=== PATIENT | male | born 1955 | race Caucasian/White ===

== ENCOUNTER 2019-06-19 08:50 | Outpatient (CLI) | payer BC, SELFPAY ==
[2019-06-19 09:54] VITALS: BP 164/79; PULSE 90; RESP 17; TEMP 36.4; O2SAT 98
--- NOTE | 2019-06-19 11:17 | DI.RAD_ITS ---
EXAM: XR PAIN CLINIC FLUORO JOINT CLINICAL HISTORY: Dx: B/L osteoarthritis TECHNIQUE: Realtime digital imaging was performed. CONTRAST MATERIAL: Water soluble contrast was administered. COMPARISON: None. FINDINGS: C-ARM FLUOROSCOPY WAS UTILIZED BY DR. SMITH DURING REPORTED GENICULAR RADIOFREQUENCY ABLATION. PLEASE SEE DR. SMITH'S PROCEDURE NOTE. IMPRESSION:
[2019-06-19 11:19] VITALS: BP 148/93; PULSE 84; RESP 11; O2SAT 96
--- NOTE | 2019-06-19 11:19 | PDOC.PAIN_ITS ---
Pain Clinic Procedure Note Procedure Note Procedure Note: BILATERAL GENICULAR NERVE RADIOFREQUENCY ABLATION Date of Service: June 19, 2019 Patient: PATRICK SMITH Provider: Antonino Lopez DO, MPH COMMENTS: Previous Genicular nerve block to the bilateral knee. No IV medication per request. DX: Bilateral Knee Osteoarthritis PATRICK SMITH has been referred to the [facility] for bilateral genicular nerve radiofrequency ablation. PATRICK was interviewed and the medical record reviewed. There were no medical, pharmacologic, radiographic or other structural contraindications to attempting fluoroscopically guided bilateral genicular nerve radiofrequency ablation. Risks and potential side effects as well as potential benefit of the procedure were reviewed with PATRICK SMITH , and his voiced concerns were addressed. After I believed that the patient was completely informed, the printed consent form was signed. Standard time-out procedure was performed. PATRICK was placed in the supine position on the fluoroscopy table and automated blood pressure cuff and pulse oximeter applied. The skin entry points for approaching bilateral superolateral genicular nerve, the suprapatellar nerve, the superomedial genicular nerve and the inferomedial genicular was identified under the most advantageous fluoroscopic view and marked. Following thorough Chlorhexadine preparation of the skin and draping, 1% lidocaine infiltration of the skin entry point and subcutaneous tissues was accomplished using a 1.5 25G needle. Next, the 10 cm 18G RF Cannula with a 10 mm active tip was advanced to os at the location of the specific nerve roots (3) using fluoroscopic guidance. Next, sensory and motor testing was performed and no abnormal findings were found. Next, 1 cc of 2% Lidocaine was injected at each site. The lesion was then created with 80 degrees C for 90 seconds. Each needle was advance 1 cm and the lesion was completed again. Each cannula was advanced until the tip reached the posterior aspect of the bone shaft. 1/3 cc of Depomedrol (40 mg/cc) was then injected at each site followed by 2 cc of 0.5% Bupivacaine as the needle was withdrawn. The needles were removed without difficulty. BRAYANs vital signs were stable throughout the procedure and were as recorded in the docflowsheet by the nursing staff. If given, dosages of intravenous drugs for anxiolysis and analgesia were documented in MAR. Follow up plans and appointments were discussed with the PATRICK SMITH . Post procedure instruction was given as documented in nursing documentation and having met discharge criteria, PATRICK was discharged from the [facility]. COMMENTS: No complications. Johnson WJ1, Robbin SJ, Aureliano JG, Marybeth JG, Elena LUGO, Park PH, Trevino JW. Radiofrequency treatment relieves chronic knee osteoarthritis pain: a double-blind randomized controlled trial. Pain. 2010;152(3):481-7. doi: 10.1016/j.pain.2010.09.029. Hellen S1, Francis ON2, Fabiola Y3, ?zl?anastasiya P2, Andrea U1, Andrzej ?m?rl? I. Which one is more effective for the clinical treatment of chronic pain in knee osteoarthritis: radiofrequency neurotomy of the genicular nerves or intra- articular injection? Int J Rheum Dis. 2016 May 12. F/U with our office as needed I personally performed this entire procedure. Antonino Lopez DO, MPH Attending Physician
[2019-06-19] MEDS: Bupivacaine 0.5% Pres-Free 10 ML VIAL IJ (11:21)
[2019-06-19] MEDS: methylPREDNISolone ACETATE 40 MG/ML VIAL IJ (11:34)
[2019-06-19] MEDS: Lidocaine 2% Pres-Free 5 ML VIAL IJ (11:35)
== END 2019-06-19 09:10 ==
PROVIDERS: Visit Provider Preventive Medicine Occupational Medicine
DX: M17.11 Unilateral primary osteoarthritis, right knee (principal); M17.12 Unilateral primary osteoarthritis, left knee
CPT/HCPCS: 64640 ×8; 77002; J1030

== ENCOUNTER 2022-06-22 10:11 | Outpatient (CLI) | payer MEDICARE, BC, SELFPAY ==
--- NOTE | 2022-06-22 06:00 | DI.RAD_ITS ---
Exam(s) XR PAIN CLINIC FLUORO JOINT IN EXAM: XR PAIN CLINIC FLUORO JOINT IN CLINICAL HISTORY: DX: bilateral knee osteoarthritis. TECHNIQUE: Fluoroscopy was provided for the referring physician for guidance with performing pain cl inic injection procedure. COMPARISON: No exams were available for comparison FINDINGS: Please see procedure note for details. Fluoro time: 52.2 seconds RADIATION DOSE DELIVERED: jong Carlisle=3.09 mGy
[2022-06-22 10:54] VITALS: BP 133/81; PULSE 84; RESP 20; TEMP 36.9; O2SAT 97
[2022-06-22] MEDS: Bupivacaine 0.5% Pres-Free 10 ML VIAL IJ (11:48)
[2022-06-22 11:49] VITALS: PULSE 80; O2SAT 98
--- NOTE | 2022-06-22 15:50 | PDOC.PAIN ---
Pain Clinic Procedure Note Procedure Note Procedure Note: Bilateral knee GENICULAR NERVE BLOCK Date of Service: June 22, 2022 Patient: PATRICK SMITH Provider: Antonino Loepz DO, MPH Pre-operative diagnosis: Bilateral knee pain Post-operative diagnosis: Same Pre-procedure pain: VAS= 10/10 COMMENTS: He had nearly 3 years of relief with this last bilateral Genicular nerve ablations. He pain recently returned. He is here for confirmatory blocks. PATRICK SMITH has been referred to the [facility] for bilateral genicular nerve block. PATRICK was interviewed and the medical record reviewed. There were no medical, pharmacologic, radiographic or other structural contraindications to attempting fluoroscopically guided bilateral genicular nerve block. Risks and potential side effects as well as potential benefit of the procedure were reviewed with PATRICK , and his voiced concerns were addressed. After I believed that the patient was completely informed, the printed consent form was signed. Standard time-out procedure was performed. PATRICK was placed in the supine position on the fluoroscopy table and automated blood pressure cuff and pulse oximeter applied. The skin entry points for approaching the right superolateral genicular nerve, the superomedial genicular nerve, the terminal branch of the nerve vastus intermedius and the inferomedial genicular was identified under the most advantageous fluoroscopic view and marked. Following thorough Chlorhexadine preparation of the skin and draping, 1% lidocaine infiltration of the skin entry point and subcutaneous tissues was accomplished using a 1.5 25G needle. Next, the 3.5 25G spinal needle was advanced to os at the location of the specific nerve root using fluoroscopic guidance. Next, 1 ml of 0.5% Bupivacaine was injected at each site. The needles were removed without difficulty. The exact procedure was completed to the left knee. PATRICK's vital signs were stable throughout the procedure and were as recorded in the docflowsheet by the nursing staff. If given, dosages of intravenous drugs for anxiolysis and analgesia were documented in MAR. Follow up plans and appointments were discussed with the PATRICK . Post procedure instruction was given as documented in nursing documentation and having met discharge criteria, PATRICK was discharged from the [facility]. COMMENTS: No apparent complications. Post-procedure pain: VAS = 0/10. The patient will keep track of her bilateral knee pain over the next four hours. If PATRIKC has sufficient pain relief, PATRICK will be a candidate for radiofrequency ablation at the same nerves. Alex WJ1, Robbin SJ, Aureliano JG, Marybeth JG, Elena LUGO, Park PH, Trevino JW. Radiofrequency treatment relieves chronic knee osteoarthritis pain: a double-blind randomized controlled trial. Pain. 2010;152(3):481-7. doi: 10.1016/j.pain.2010.09.029. Hellen S1, Francis ON2, Fabiola Y3, ?zl?anastasiya P2, Andrea U1, Andrzej ?m?rl? I. Which one is more effective for the clinical treatment of chronic pain in knee osteoarthritis: radiofrequency neurotomy of the genicular nerves or intra-articular injection? Int J Rheum Dis. 2016 May 12. F/U with our office by phone tomorrow to let us know his 1-4 hour post-procedure pain levels in the knees. Antonino Lopez DO, MPH [facility]
== END 2022-06-22 10:12 | disposition home or self-care (01) ==
LOC: PC 10:12
PROVIDERS: Visit Provider Preventive Medicine Occupational Medicine
DX: M25.561 Pain in right knee (principal); M25.562 Pain in left knee
CPT/HCPCS: 64454; 77002

== ENCOUNTER 2022-07-06 10:34 | Outpatient (CLI) | payer MEDICARE, BC, SELFPAY ==
[2022-07-06 11:15] VITALS: BP 131/70; PULSE 77; RESP 20; TEMP 36.8; O2SAT 98
[2022-07-06] MEDS: Midazolam 2 MG/2 ML VIAL IVP (11:50)
[2022-07-06] MEDS: fentaNYL 100 MCG/2 ML VIAL IVP (11:50)
[2022-07-06 12:17] VITALS: BP 143/81; PULSE 84; RESP 17; O2SAT 98
--- NOTE | 2022-07-06 12:18 | DI.RAD_ITS ---
Exam(s) XR PAIN CLINIC FLUORO JOINT IN EXAM: XR PAIN CLINIC FLUORO JOINT IN CLINICAL HISTORY: Dx: Osteoarthritis of the knee TECHNIQUE: 2D and realtime digital imaging was performed. COMPARISON: No exams were available for comparison FINDINGS: C-arm fluoroscopy was utilized by Dr. Lopez. Please see the procedure note. IMPRESSION: RADIATION DOSE DELIVERED: jong Carlisle=4.33 mGy
--- NOTE | 2022-07-06 12:20 | PDOC.PAIN_ITS ---
Pain Clinic Procedure Note Procedure Note Procedure Note: Right Knee Radiofrequency with Coolief Machine PROCEDURE NOTE Date of Service: July 06, 2022 Patient: Benjamín Peralta Provider: Antonino Lopez DO, MPH Pre Operative Diagnosis: Right osteoarthritis status-post TKA Post Operative Diagnosis: Same PROCEDURE: 1. Superolateral genicular branch from the vastus lateralis 2. Superomedial genicular branch from the vastus medialis 3. Inferomedial genicular branch from the saphenous nerve 4. Terminal branch of the nerve vastus intermedius Benjamín Peralta was brought into brought to the procedure room and placed on the exam table in a comfortable supine position. The place for needle placement was obtained by manual palpation with radiographic confirmation. The sterile field was prepared by chloroprep and sterile drapes. Local anesthesia superficial and deep was provided by local infiltration of 2% Lidocaine. A 17g 50 mm radiofrequency introducer needle with a 4mm active tip was placed overlying the right knee joint and using fluoroscopic guidance the needle was advanced to a bony endpoint on the superiolateral portion of the femoral condyle of the right knee. A second needle was advanced to a bony endpoint on the superiomedial portion of the femoral condyle. A third needle was then placed over the inferiomedial portion of the tibial condyle until a bony endpoint was met. Attempted aspiration yielded no blood. Lateral x-ray views showed all the needles at 50% depth of the femur and tibia. Motor stimulation was tested ad 2.0 volts with no leg movement. Images were saved in AP and lateral. A mixture consisting of 2% Lidocaine was slowly injected. Then a radiofrequency ablation of each of the geniculate nerves were done at 80 degrees Celsius for 2 minutes and 30 seconds each. After each ablation, I injected 1/4 cc of Depomedrol (40/cc) followed by 1 cc of 0.5% Bupivacaine. The needles were withdrawn. POST PROCEDURE EVALUATION: IMPRESSION: Summary of procedure. 1. RTC PRN. 2. Estimated Blood Loss: <5cc Follow up plans and appointments were discussed with the Benjamín . Post procedure instruction was given as documented in nursing documentation and having met discharge criteria, Benjamín was discharged from the [facility]. COMMENTS: No complications. Post-procedure pain VAS was 0/10. F/U with our office as needed. Antonino Lopez DO, MPH [facility]-Pain Management [facility]-Center for Pain Management.
[2022-07-06] MEDS: Bupivacaine 0.5% Pres-Free 10 ML VIAL IJ (12:37)
[2022-07-06] MEDS: methylPREDNISolone ACETATE 40 MG/ML VIAL IJ (12:38)
[2022-07-06] MEDS: Lidocaine 2% Pres-Free 5 ML VIAL IJ (12:38)
== END 2022-07-06 10:35 | disposition home or self-care (01) ==
LOC: PC 10:34
PROVIDERS: Visit Provider Preventive Medicine Occupational Medicine
DX: M17.11 Unilateral primary osteoarthritis, right knee (principal); M25.561 Pain in right knee
CPT/HCPCS: 64624; 77002; J1030; J2250; J3010

== ENCOUNTER 2022-08-16 08:18 | Outpatient (CLI) | payer MEDICARE, BC, SELFPAY ==
--- NOTE | 2022-08-16 06:00 | DI.RAD_ITS ---
Exam(s) XR PAIN CLINIC FLUORO JOINT IN EXAM: XR PAIN CLINIC FLUORO JOINT IN CLINICAL HISTORY: Dx: Osteoarthritis of the knee. TECHNIQUE: Fluoroscopy was provided for the referring physician for guidance with performing pain cl inic injection procedure. COMPARISON: No exams were available for comparison FINDINGS: Please see procedure note for details. Fluoro time: 53.0 seconds RADIATION DOSE DELIVERED: jong Carlisle=3.57 mGy
[2022-08-16 08:36] VITALS: BP 126/82; PULSE 97; RESP 20; TEMP 36.5; O2SAT 98
[2022-08-16] MEDS: fentaNYL 100 MCG/2 ML VIAL IVP (09:02)
[2022-08-16] MEDS: Lactated Ringers 500 ML 80 ML IV (09:35)
--- NOTE | 2022-08-16 09:37 | PDOC.PAIN ---
Date of service: 08/16/22 Time of Service: 09:37 Pain Clinic Procedure Note Procedure Note Procedure Note: LEFT GENICULAR NERVE RADIOFREQUENCY ABLATION WITH THE AVENOS MACHINE Date of Service: August 16, 2022 Patient: Benjamín Peralta Provider: Antonino Lopez DO, MPH Pre-operative diagnosis: Left knee pain and osteoarthritis Post-operative diagnosis: Same Pre-operative pain VAS: 6/10 COMMENTS: Previous Genicular nerve block to the LEFT knee on 06/22/22. Benjamín Peralta has been referred to the [facility] for LEFT genicular nerve radiofrequency ablation. Benjamín was interviewed and the medical record reviewed. There were no medical, pharmacologic, radiographic or other structural contraindications to attempting fluoroscopically guided LEFT genicular nerve radiofrequency ablation. Risks and potential side effects as well as potential benefit of the procedure were reviewed with Benjamín Peralta , and HIS voiced concerns were addressed. After I believed that the patient was completely informed, the printed consent form was signed. Standard time-out procedure was performed. Benjamín was placed in the supine position on the fluoroscopy table and automated blood pressure cuff and pulse oximeter applied. The skin entry points for approaching LEFT superolateral genicular nerve, the superomedial genicular nerve and the inferomedial genicular was identified under the most advantageous fluoroscopic view and marked. Following thorough Chlorhexadine preparation of the skin and draping, 1% lidocaine infiltration of the skin entry point and subcutaneous tissues was accomplished using a 1.5 25G needle. Next, the 10 cm 18G RF Cannula with a 10 mm active tip was advanced to os at the location of the specific nerve roots (3) using fluoroscopic guidance. Next, sensory and motor testing was performed and no abnormal findings were found. Next, 1 cc of 2% Lidocaine was injected at each site. The lesion was then created with 80 degrees C for 90 seconds. Each needle was advance 1 cm and the lesion was completed again. Each cannula was advanced until the tip reached the posterior aspect of the bone shaft. 1/3 cc of Depomedrol (40 mg/cc) was then injected at each site followed by 2 cc of 0.5% Bupivacaine as the needle was withdrawn. The needles were removed without difficulty. Benjamín's vital signs were stable throughout the procedure and were as recorded in the docflowsheet by the nursing staff. If given, dosages of intravenous drugs for anxiolysis and analgesia were documented in MAR. Follow up plans and appointments were discussed with the Benjamín Peralta . Post procedure instruction was given as documented in nursing documentation and having met discharge criteria, Benjamín was discharged from the [facility]. COMMENTS: No complications. Alex WJ1, Robbin SJ, Aureliano JG, Marybeth JG, Ulices LUGO, Ruth PH, Uriel JW. Radiofrequency treatment relieves chronic knee osteoarthritis pain: a double-blind randomized controlled trial. Pain. 2010;152(3):481-7. doi: 10.1016/j.pain.2010.09.029. Hellen S1, Francis ON2, Fabiola Y3, ?zl?lerden P2, Andrea U1, Andrzej ?m?rl? I. Which one is more effective for the clinical treatment of chronic pain in knee osteoarthritis: radiofrequency neurotomy of the genicular nerves or intra-articular injection? Int J Rheum Dis. 2016 May 12. F/U with our office as needed. This procedure can be completed if it lasts at least 6 months. Post-procedure pain VAS = 0/10. Antonino Lopez DO, MPH [facility] for [facility]
[2022-08-16] MEDS: Bupivacaine 0.5% Pres-Free 10 ML VIAL IJ (09:44)
[2022-08-16] MEDS: Lidocaine 2% Pres-Free 5 ML VIAL IJ (09:44)
[2022-08-16] MEDS: methylPREDNISolone ACETATE 40 MG/ML VIAL IJ (09:44)
[2022-08-16 09:45] VITALS: BP 143/91; PULSE 97; RESP 18; O2SAT 96
== END 2022-08-16 08:19 | disposition home or self-care (01) ==
LOC: PC 08:19
PROVIDERS: Visit Provider Preventive Medicine Occupational Medicine
DX: M25.562 Pain in left knee (principal); M17.12 Unilateral primary osteoarthritis, left knee
CPT/HCPCS: 64624; 77002; J1030; J3010

== ENCOUNTER 2023-02-07 07:24 | Outpatient (CLI) | payer MEDICARE, BC, SELFPAY ==
[2023-02-07 07:35] VITALS: BP 112/71; PULSE 81; RESP 20; TEMP 36.5; O2SAT 98
[2023-02-07] MEDS: Midazolam 2 MG/2 ML VIAL IVP (08:21)
[2023-02-07] MEDS: fentaNYL 100 MCG/2 ML VIAL IVP (08:21)
[2023-02-07] MEDS: Lactated Ringers 500 ML 80 ML IV (08:21)
--- NOTE | 2023-02-07 08:50 | DI.RAD_ITS ---
Exam(s) XR PAIN CLINIC FLUORO JOINT IN EXAM: XR PAIN CLINIC FLUORO JOINT IN CLINICAL HISTORY: Dx: Osteoarthritis of the knee. TECHNIQUE: Fluoroscopy was provided for the referring physician for guidance with performing pain cl inic injection procedure. COMPARISON: No exams were available for comparison FINDINGS: Please see procedure note for details. Fluoro time: 60 seconds RADIATION DOSE DELIVERED: jong Carlisle=3.17 mGy
[2023-02-07 08:52] VITALS: BP 117/69; PULSE 66; RESP 16; O2SAT 98
--- NOTE | 2023-02-07 08:55 | PDOC.PAIN_ITS ---
Date of service: 02/07/23 Time of Service: 09:03 Pain Managment Procedure Note Procedure Note Procedure Note: RIGHT GENICULAR NERVE RADIOFREQUENCY ABLATION WITH THE COOLIEF MACHINE Date of Service: February 07, 2023 Patient: Benjamín Peralta Provider: Antonino Lopez DO, MPH Pre-operative diagnosis: Right knee pain Post-operative diagnosis: Same Pre-procedure pain VAS was 10/10. COMMENTS: Previous Genicular nerve ablation to the RIGHT knee on 07/06/2022 with >6 months of >50% pain relief. Benjamín Peralta has been referred to the [facility] for RIGHT genicular nerve radiofrequency ablation. Benjamín was interviewed and the medical record reviewed. There were no medical, pharmacologic, radiographic or other structural contraindications to attempting fluoroscopically guided RIGHT genicular nerve radiofrequency ablation. Risks and potential side effects as well as potential benefit of the procedure were reviewed with Benjamín Peralta , and HIS voiced concerns were addressed. After I believed that the patient was completely informed, the printed consent form was signed. Standard time-out procedure was performed. Benjamín was placed in the supine position on the fluoroscopy table and automated blood pressure cuff and pulse oximeter applied. The skin entry points for approaching RIGHT superolateral genicular nerve, the superomedial genicular nerve, suprapatellar, and the inferomedial genicular was identified under the most advantageous fluoroscopic view and marked. Following thorough Chlorhexadine preparation of the skin and draping, 1% lidocaine infiltration of the skin entry point and subcutaneous tissues was accomplished using a 1.5 25G needle. Next, the 10 cm 18G RF Cannula with a 10 mm active tip was advanced to os at the location of the specific nerve roots (4) using fluoroscopic guidance. Next, sensory and motor testing was performed and no abnormal findings were found. Next, 1 cc of 2% Lidocaine was injected at each site. The lesion was then created with 80 degrees C for 90 seconds. Each needle was advance 1 cm and the lesion was completed again. Each cannula was advanced until the tip reached the posterior aspect of the bone shaft. 1/4 cc of Depomedrol (40 mg/cc) was then injected at each site followed by 2 cc of 0.5% Bupivacaine as the needle was withdrawn. The needles were removed without difficulty. Benjamín's vital signs were stable throughout the procedure and were as recorded in the docflowsheet by the nursing staff. If given, dosages of intravenous drugs for anxiolysis and analgesia were documented in NOV. Follow up plans and appointments were discussed with the Benjamín Peralta . Post procedure instruction was given as documented in nursing documentation and having met discharge criteria, Benjamín was discharged from the [facility]. COMMENTS: No complications. Johnson WJ1, Robbin SJ, Aureliano JG, Marybeth JG, Ulices LUGO, Park PH, Uriel JW. Radiofrequency treatment relieves chronic knee osteoarthritis pain: a double-blind randomized controlled trial. Pain. 2010;152(3):481-7. doi: 10.1016/j.pain.2010.09.029. Hellen S1, Francis ON2, Fabiola Y3, ?zl?lerkeny P2, Andrea U1, Andrzej ?m?rl? I. Which one is more effective for the clinical treatment of chronic pain in knee osteoarthritis: radiofrequency neurotomy of the genicular nerves or intra- articular injection? Int J Rheum Dis. 2016 May 12. F/U with our office as needed. If this procedure gives him at least 6 months of at least 50% pain relief and/or functional improvement, it can be repeated. Post-procedure pain VAS was 0/10. Antonino Lopez DO, MPH [facility]
[2023-02-07] MEDS: Lidocaine 2% Pres-Free 5 ML VIAL IJ (09:12)
[2023-02-07] MEDS: Bupivacaine 0.5% Pres-Free 10 ML VIAL IJ (09:13)
[2023-02-07] MEDS: methylPREDNISolone ACETATE 40 MG/ML VIAL IJ (09:13)
== END 2023-02-07 07:25 | disposition home or self-care (01) ==
PROVIDERS: Visit Provider Preventive Medicine Occupational Medicine
DX: M25.561 Pain in right knee (principal)
CPT/HCPCS: 64624; 77002; J1030; J2250; J3010

== ENCOUNTER 2023-02-21 07:17 | Outpatient (CLI) | payer MEDICARE, BC, SELFPAY ==
--- NOTE | 2023-02-21 06:00 | DI.RAD_ITS ---
Exam(s) XR PAIN CLINIC FLUORO JOINT IN EXAM: XR PAIN CLINIC FLUORO JOINT IN CLINICAL HISTORY: Dx: Left knee pain TECHNIQUE: 2D and realtime digital imaging was performed. Radiologist not present. CONTRAST MATERIAL: None. COMPARISON: No exams were available for comparison FINDINGS: Fluoroscopy was provided for pain management therapy. Please refer to procedure report or details. Radiation Exposure Index: Kar=4.22 mGy IMPRESSION: As above. RADIATION DOSE DELIVERED:
[2023-02-21 07:32] VITALS: BP 125/82; PULSE 78; RESP 20; TEMP 36.5; O2SAT 98
[2023-02-21] MEDS: Midazolam 2 MG/2 ML VIAL IVP (08:25)
[2023-02-21] MEDS: fentaNYL 100 MCG/2 ML VIAL IVP (08:25)
[2023-02-21] MEDS: Lactated Ringers 500 ML 80 ML IV (08:28)
[2023-02-21 08:57] VITALS: BP 137/68; PULSE 81; RESP 14; O2SAT 98
[2023-02-21] MEDS: Bupivacaine 0.5% Pres-Free 10 ML VIAL IJ (09:20)
[2023-02-21] MEDS: methylPREDNISolone ACETATE 40 MG/ML VIAL IJ (09:21)
[2023-02-21] MEDS: Lidocaine 2% Pres-Free 5 ML VIAL IJ (09:21)
--- NOTE | 2023-02-21 14:00 | PDOC.PAIN ---
Date of service: 02/21/23 Time of Service: 09:00 Pain Managment Procedure Note Procedure Note Procedure Note: LEFT GENICULAR NERVE RADIOFREQUENCY ABLATION WITH THE AVENOS MACHINE Date of Service: February 21, 2023 Patient: Benjamín Peralta Provider: Antonino Lopez DO, MPH Pre-operative diagnosis: Left knee pain Post-operative diagnosis: Same Pre-procedure pain VAS was 6/10 COMMENTS: Previous Genicular nerve block to the LEFT knee. Benjamín Peralta has been referred to the [facility] for LEFT genicular nerve radiofrequency ablation. Benjamín was interviewed and the medical record reviewed. There were no medical, pharmacologic, radiographic or other structural contraindications to attempting fluoroscopically guided LEFT genicular nerve radiofrequency ablation. Risks and potential side effects as well as potential benefit of the procedure were reviewed with Benjamín Peralta , and HIS voiced concerns were addressed. After I believed that the patient was completely informed, the printed consent form was signed. Standard time-out procedure was performed. Benjamín was placed in the supine position on the fluoroscopy table and automated blood pressure cuff and pulse oximeter applied. The skin entry points for approaching LEFT superolateral genicular nerve, the superomedial genicular nerve, suprapatellar, and the inferomedial genicular was identified under the most advantageous fluoroscopic view and marked. Following thorough Chlorhexadine preparation of the skin and draping, 1% lidocaine infiltration of the skin entry point and subcutaneous tissues was accomplished using a 1.5 25G needle. Next, the 10 cm 18G RF Cannula with a 10 mm active tip was advanced to os at the location of the specific nerve roots (4) using fluoroscopic guidance. Next, sensory and motor testing was performed and no abnormal findings were found. Next, 1 cc of 2% Lidocaine was injected at each site. The lesion was then created with 80 degrees C for 90 seconds. Each needle was advance 1 cm and the lesion was completed again. Each cannula was advanced until the tip reached the posterior aspect of the bone shaft. 1/4 cc of Depomedrol (40 mg/cc) was then injected at each site followed by 2 cc of 0.5% Bupivacaine as the needle was withdrawn. The needles were removed without difficulty. Benjamín's vital signs were stable throughout the procedure and were as recorded in the docflowsheet by the nursing staff. If given, dosages of intravenous drugs for anxiolysis and analgesia were documented in MAR. Follow up plans and appointments were discussed with the Benjamín Peralta . Post procedure instruction was given as documented in nursing documentation and having met discharge criteria, Benjamín was discharged from the [facility] Management Center. COMMENTS: No complications. Post-procedure pain VAS was 0/10. If he receives at least 6 months of at least 50% pain improvement and/or functional improvement, this procedure can be completed. Alex WJ1, Robbin SJ, Aureliano JG, Marybeth JG, Ulices LUGO, Park PH, Uriel JW. Radiofrequency treatment relieves chronic knee osteoarthritis pain: a double-blind randomized controlled trial. Pain. 2011 Nov;152(3):481-7. doi: 10.1016/j.pain.2010.09.029. Hellen S1, Francis ON2, Fabiola Y3, ?zl?anastasiya P2, Andrea U1, Andrzej ?m?rl? I. Which one is more effective for the clinical treatment of chronic pain in knee osteoarthritis: radiofrequency neurotomy of the genicular nerves or intra-articular injection? Int J Rheum Dis. 2016 May 12. F/U with our office as needed. I personally performed this entire procedure. Antonino Loepz DO, MPH [facility]-Pain Management [facility]-Center for Pain Management
== END 2023-02-21 07:18 | disposition home or self-care (01) ==
LOC: PC 07:18
PROVIDERS: PCP Nurse Practitioner Family; Visit Provider Preventive Medicine Occupational Medicine
DX: M25.562 Pain in left knee (principal)
CPT/HCPCS: 64624; 77002; J1030; J2250; J3010

== ENCOUNTER 2023-11-15 08:20 | Outpatient (CLI) | payer MEDICARE, SELFPAY ==
[2023-11-15 08:41] VITALS: BP 122/69; PULSE 75; RESP 20; TEMP 36.7; O2SAT 100
[2023-11-15] MEDS: fentaNYL 100 MCG/2 ML VIAL IVP (09:10)
--- NOTE | 2023-11-15 10:25 | DI.RAD_ITS ---
Exam(s) XR PAIN CLINIC FLUORO JOINT IN EXAM: XR PAIN CLINIC FLUORO JOINT IN CLINICAL HISTORY: DX: Right knee osteoarthritis. TECHNIQUE: Fluoroscopy was provided for the referring physician for guidance with performing pain cl inic injection procedure. COMPARISON: No exams were available for comparison FINDINGS: Please see procedure note for details. Fluoro time: 31.1 seconds RADIATION DOSE DELIVERED: jong Carlisle=1.56 mGy
--- NOTE | 2023-11-15 10:25 | DI.RAD_ITS ---
Exam(s) XR PAIN CLINIC FLUORO JOINT IN EXAM: XR PAIN CLINIC FLUORO JOINT IN CLINICAL HISTORY: DX: Left knee osteoarthritis. TECHNIQUE: Fluoroscopy was provided for the referring physician for guidance with performing pain cl inic injection procedure. COMPARISON: No exams were available for comparison FINDINGS: Please see procedure note for details. Fluoro time: 38.8 seconds RADIATION DOSE DELIVERED: jong Carlisle=2.09 mGy
[2023-11-15] MEDS: Bupivacaine 0.5% Pres-Free 10 ML VIAL IJ (10:32)
[2023-11-15] MEDS: Nerve Block Tray 1 EACH MC (10:32)
[2023-11-15] MEDS: Lidocaine 2% Pres-Free 5 ML VIAL IJ (10:33)
[2023-11-15 10:34] VITALS: BP 141/83; PULSE 84; RESP 18; O2SAT 95
--- NOTE | 2023-11-15 10:42 | PDOC.PAIN ---
Date of service: 11/15/23 Time of Service: 10:42 Pain Managment Procedure Note Procedure Note Procedure Note: PROCEDURE NOTE BILATERAL GENICULAR NERVE RADIOFREQUENCY ABLATION Date of Service: November 15, 2023 Patient: Benjamín Peralta Provider: Christiano Smith DO, MPH Benjamín Peralta [facility] Bilateral genicular nerve radiofrequency ablation with the [employer] machine. Pre-operative diagnosis: Pain in left knee M25.562and Pain in right knee M25.561 Post-operative diagnosis: Same Pre-Procedure Pain: VAS=9/10 Comments: Previous genicular nerve blocks and RFA to the Bilateral knee. His last RFAs gave him >12 months of pain relief to each knee. His A1c is >8.5, so we will exclude any steroid use. PROCEDURE: 1. Superolateral genicular branch from the vastus lateralis 2. Superomedial genicular branch from the vastus medialis 3. Inferomedial genicular branch from the saphenous nerve 4. Terminal branch of the nerve vastus intermedius Benjamín was interviewed and the medical record reviewed. There were no medical, pharmacologic, radiographic or other structural contraindications to attempting fluoroscopically guided Left genicular nerve radiofrequency ablation. Risks and potential side effects as well as potential benefit of the procedure were reviewed with Benjamín Peralta , and the patient's voiced concerns were addressed. After I believed that the patient was completely informed, the printed consent form was signed. Standard time-out procedure was performed. Benjamín Peralta was brought into brought to the procedure room and placed on the fluoroscopy table in a comfortable supine position and automated blood pressure cuff and pulse oximeter applied. A grounding pad was placed on the left ankle. The place for needle placement was obtained by manual palpation with radiographic confirmation. The skin entry points for approaching Left superolateral genicular nerve, the superomedial genicular nerve, nerve of the vastus intermedius and the inferomedial genicular was identified under the most advantageous fluoroscopic view and marked. Following thorough Chlorhexadine preparation of the skin and draping, 1% lidocaine infiltration of the skin entry point and subcutaneous tissues was accomplished using a 1.5 25G needle. Next, the 17G 50 mm radiofrequency cannula needle with a 4mm active tip was advanced to os at the location of the specific nerve roots (4) using fluoroscopic guidance. Next, motor testing was performed and no abnormal findings were found. Next, 1 cc of 2% Lidocaine was injected at each site after negative aspiration. The lesion was then created with 80 degrees Celsius for 2 minutes and 30 seconds each. 1 cc of 0.5% Bupivacaine was injected at each sensory nerve and the needle was withdrawn. There was no unusual discomfort expressed by Benjamín. The needles were withdrawn without difficulty. Benjamín was observed and was without hemodynamic, neurologic, or allergic reactions.? Fluoroscopic images were digitally archived. The exact procedure was then completed on the right side. Benjamín's vital signs were stable throughout the procedure and were as recorded in the docflowsheet by the nursing staff. If given, dosages of intravenous drugs for anxiolysis and analgesia were documented in MAR. POST PROCEDURE EVALUATION: IMPRESSION: 1. Medication given is documented in the MAR 2. Follow up plan: Benjamín to contact [facility] needed. This procedure may be repeated if the patient achieves at least 50% improvement in pain and/or function for at least 6 months. 3. Estimated Blood Loss: <5ml 4. Fluoroscopy time: Documented in the EMR Follow up plans and appointments were discussed with Benjamín. Post procedure instruction was given as documented in nursing documentation and having met discharge criteria, Benjamín was [facility] from the [facility]. COMMENTS: No apparent complications. Post-procedure pain: VAS= 0/10. Alex WJ1, Robbin SJ, Aureliano JG, Marybeth SosaG, Ulices LUGO, Ruth PH, Uriel JW. Radiofrequency treatment relieves chronic knee osteoarthritis pain: a double-blind randomized controlled trial. Pain. 2010;152(3):481-7. doi: 10.1016/j.pain.2010.09.029. Hellen S1, Francis ON2, Fabiola Y3, ?zl?anastasiya P2, Andrea U1, Andrzej ?m?rl? I. Which one is more effective for the clinical treatment of chronic pain in knee osteoarthritis: radiofrequency neurotomy of the genicular nerves or intra-articular injection? Int J Rheum Dis. 2016 May 12. I personally completed the entire procedure. CHRISTIANO SMITH DO, MPH [employer] - Subspecialty board certification in Pain Medicine [facility] [facility]
== END 2023-11-15 08:21 | disposition home or self-care (01) ==
LOC: PC 08:24
PROVIDERS: PCP Nurse Practitioner Family; Visit Provider Preventive Medicine Occupational Medicine
DX: M25.561 Pain in right knee (principal); M25.562 Pain in left knee
CPT/HCPCS: 123; 64624; 77002; 00123; J0665; J3010

== ENCOUNTER 2024-08-20 11:04 | Outpatient (CLI) | payer MEDICARE, SELFPAY ==
[2024-08-20] VITALS (15 sets, daily range): BP systolic 112–154; BP diastolic 66–141; PULSE 68–89; RESP 9–19; TEMP 36.6; O2SAT 92–99
--- NOTE | 2024-08-20 06:00 | DI.RAD_ITS ---
Exam(s) XR PAIN CLINIC FLUORO JOINT IN EXAM: XR PAIN CLINIC FLUORO JOINT IN CLINICAL HISTORY: DX: Knee Osteoarthritis. TECHNIQUE: Fluoroscopy was provided for the referring physician for guidance with performing pain cl inic injection procedure. COMPARISON: No exams were available for comparison FINDINGS: Please see procedure note for details. Fluoro time: 114.7 seconds RADIATION DOSE DELIVERED: jong Carlisle=6.7 mGy
--- NOTE | 2024-08-20 11:41 | PDOC.PAIN_ITS ---
Date of service: 08/20/24 Time of Service: 13:12 Pain Managment Procedure Note Procedure Note Procedure Note: ?Genicular Nerve COOLED RF ? Location: Left and Right Superior Lateral, Superior Medial, Suprapatellar and Inferior Medial Genicular Nerve Branches ? Pre-procedure Diagnosis: M25.561 Pain in right knee , M17.11 Unliateral primary osteoarthritis, right knee M25.562 Pain in left knee? , M17.12 Unliateral primary osteoarthritis, left knee ? Post-procedure Diagnosis:? The same as above ? Sedation: VERSED 1MG Fentanyl 25 mcg ? Estimated blood loss:? less than 2 cc ? Surgeon:? Ramon Murrieta MD ? Procedure Detail:? The patient was brought to the procedure room and placed in the supine position on the fluoroscopy table. The patient's? right and left knee was then placed on pillows as tolerated to facilitate modest flexion of the joint and offset from the non-treated knee in the lateral view. Time out was performed in the procedure room with nursing staff confirming the patient's identity, procedure to be performed, allergies, and any blood thinning or anti- platelet medications. The skin of the target knee was prepped with ChloraPrep in a sterile fashion. Sterile gloves were used, a face mask was worn, and new single dose vials of all medications were used with the top being swabbed with alcohol and given time to dry prior to withdrawal of medication.? The superior medial and superior lateral epicondyles of the femur, 3cm above the patella midline femur as well as the distal aspect of the medial tibial epicondyle was identified using an AP fluoroscopic view.? With fluoroscopic guidance, three? 17 -gauge 4mm active tip radiofrequency cannula was advanced to the periosteum at this location.? AP and lateral views confirmed appropriate placement. Motor testing was negative for stimulation up to 2 V. Next 1 cc of 2% lidocaine was injected through each needle tip. Lesioning was then carried out at 60 degrees Celsius for 150 seconds? The needles were gently removed.? The patient tolerated the procedure well and was transferred to the recovery room in stable condition.? Permanent images were saved and recorded. Pain: pre-preprocedure 04/09 post procedure 010 PLAN: Pt will f/u prn. Repeat prn as long as patient gets more than 50% relief for 6 months or more
[2024-08-20] MEDS: Midazolam 2 MG/2 ML VIAL IVP (12:16)
[2024-08-20] MEDS: fentaNYL 100 MCG/2 ML VIAL IVP (12:16)
[2024-08-20] MEDS: Normal Saline Flush 10 ML SYR IVP (13:12)
[2024-08-20] MEDS: Lidocaine 2% Multi-Dose 20 ML VIAL IJ (13:12)
[2024-08-20] MEDS: Nerve Block Tray 1 EACH MC (13:13)
== END 2024-08-20 11:05 | disposition home or self-care (01) ==
LOC: PC 11:05
PROVIDERS: PCP Nurse Practitioner Family; Visit Provider Anesthesiology Pain Medicine
DX: M25.561 Pain in right knee (principal); M25.562 Pain in left knee; M17.11 Unilateral primary osteoarthritis, right knee; M17.12 Unilateral primary osteoarthritis, left knee
CPT/HCPCS: 00123; 64624; 77002; J2003; J2250; J3010